=== PATIENT | female | born 1995 | race Caucasian/White ===

== ENCOUNTER 2019-03-31 15:39 | Emergency (ER) | payer OTHER ==
[2019-03-31] MEDS: ACETAMINOPHEN 325 MG TAB PO (16:32)
== END 2019-03-31 17:50 | disposition home or self-care (01) ==
LOC: FTE 15:39
DX: S09.90XA Unspecified injury of head, initial encounter (principal); V00.141A Fall from scooter (nonmotorized), initial encounter; Z85.850 Personal history of malignant neoplasm of thyroid
CPT/HCPCS: 70450; 99284-25